=== PATIENT | male | born 1980 | race Caucasian/White ===

== ENCOUNTER 2019-02-24 00:50 | Emergency (ER) | payer SELFPAY ==
[2019-02-24] MEDS ORDERED: Lidocaine 2% Viscous Solution 15 ML Cup PO ONE (01:18)
[2019-02-24] MEDS ORDERED: Benzocaine 20% Topical Spray UD MUCMEM ONE (01:18)
[2019-02-24] MEDS ORDERED: Ibuprofen 600 MG Tab PO ONE (01:19)
--- NOTE | 2019-02-24 01:22 | EDM.PDOC ---
ED HPI GENERAL MEDICAL PROBLEM - General Chief Complaint: ENT Problem Stated Complaint: TOOTHACHE Time Seen by Provider: 02/24/19 01:14 CDT - History of Present Illness INITIAL COMMENTS - FREE TEXT/NARRATIVE: HISTORY AND PHYSICAL: History of present illness: Patient is a 38-year-old male who has a history of "bad teeth" and has not seen a dentist in many years and presents with pain to his right upper gumline and to the area. He says that he has pain on and off at several areas in his mouth but it was worse the last few days. He has been using [id number]-[id number] Anusol but no [id number] meds such as Tylenol or ibuprofen. He has no other systemic complaints Review of systems: As per history of present illness and below otherwise all systems reviewed and negative. Past medical history: As per history of present illness and as reviewed below otherwise noncontributory. Surgical history: As per history of present illness and as reviewed below otherwise noncontributory. Social history: No reported history of drug or alcohol abuse. Family history: As per history of present illness and as reviewed below otherwise noncontributory. Physical exam: General: Well-developed well-nourished thin man who is nontoxic and vital signs are noted by me. He has minimal soft tissue swelling seen of his maxillary area on the right and is speaking clearly HEENT: Atraumatic, normocephalic, pupils reactive, negative for conjunctival pallor or scleral icterus, mucous membranes moist, throat clear, neck supple, nontender, trachea midline. There is no cervical adenopathy or nuchal rigidity and there is no crepitus with palpation of the right side of his face. There are multiple areas of dental disease and dental decay the most noteworthy is along the right gumline extending from the bicuspid back to the premolars where there is multiple teeth with decay and gum swelling as well as tenderness in this area. Lungs: Clear to auscultation, breath sounds equal bilaterally, chest nontender. Heart: S1S2, regular rate and rhythm no overt murmurs Abdomen: Soft, nondistended, nontender. NABS Pelvis: Deferred Genitourinary: Deferred. Rectal: Deferred. Extremities: Atraumatic, negative for cords or calf pain. Neurovascular unremarkable. Neuro: Awake, alert, oriented. Cranial nerves II through XII unremarkable. Cerebellum unremarkable. Motor and sensory unremarkable throughout. Exam nonfocal. Diagnostics: [] Therapeutics: Dental balls, Motrin Impression: Dental infection and pain Definitive disposition and diagnosis as appropriate pending reevaluation and review of above. Right Cheek Pain Score (Numeric/FACES): 10 - Related Data Allergies Allergy/AdvReac Type Severity Reaction Status Date / Time No Known Allergies Allergy Verified 02/24/19 01:05 CDT Home Meds: Home Meds . [No Known Home Meds] 02/24/19 [History] Past Medical History - Past Health History Medical/Surgical History: Denies Medical/Surgical History HEENT History: Reports: None Cardiovascular History: Reports: None Respiratory History: Reports: None Gastrointestinal History: Reports: None Genitourinary History: Reports: None Musculoskeletal History: Reports: None Neurological History: Reports: None Psychiatric History: Reports: None Endocrine/Metabolic History: Reports: None Hematologic History: Reports: None Immunologic History: Reports: None Oncologic (Cancer) History: Reports: None Dermatologic History: Reports: None - Infectious Disease History Infectious Disease History: Reports: None - Past Surgical History Head Surgeries/Procedures: Reports: None Male Surgical History: Reports: None Social & Family History - Tobacco Use Smoking Status *Q: Current Every Day Smoker Years of Tobacco use: 20 Packs/Tins Daily: 1 - Caffeine Use Caffeine Use: Reports: Coffee, Soda - Recreational Drug Use Recreational Drug Use: No ED ROS GENERAL - Review of Systems Review Of Systems: ROS reveals no pertinent complaints other than HPI. ED EXAM, GENERAL - Physical Exam Exam: See Below (See dictation) Course - Vital Signs Last Recorded V/S: Last Vital Signs Temp 36.6 C 02/24/19 01:02 CDT Pulse 76 02/24/19 01:02 CDT Resp 20 02/24/19 01:02 CDT BP 142/77 H 02/24/19 01:02 CDT Pulse Ox 100 02/24/19 01:02 CDT - Orders/Labs/Meds Orders: Active Orders 24 hr Category Date Time Status Benzocaine [Hurricaine One 20%] Med 02/24/19 01:18 Once 2 each MUCMEM ONETIME ONE Ibuprofen [Motrin] Med 02/24/19 01:19 Once 600 mg PO ONETIME ONE Lidocaine 2% [Xylocaine 2% Viscous] Med 02/24/19 01:18 Once 15 ml PO ONETIME ONE Medication Orders Benzocaine (Hurricaine One 20%) 2 each MUCMEM ONETIME ONE Stop: 02/24/19 01:19 [employer]ESS [employer] Lidocaine HCl (Xylocaine 2% Viscous) 15 ml PO ONETIME ONE Stop: 02/24/19 01:19 [employer]ESS [employer] Meds: Medications Generic Name Dose Route Start Last Admin Trade Name Johnson PRN Reason Stop Dose Admin Benzocaine 2 each 02/24/19 01:18 [employer]ESS [employer] Hurricaine One 20% MUCMEM 02/24/19 01:19 DRESS [employer] ONETIME ONE Lidocaine HCl 15 ml 02/24/19 01:18 DRESS [employer]ER Xylocaine 2% Viscous PO 02/24/19 01:19 DRESS [employer]ER ONETIME ONE Departure - Departure Time of Disposition: 01:21 Disposition: Home, Self-Care 01 Condition: Good Clinical Impression: Dental infection, Pain, dental - Discharge Information Referrals: PCP,None [Primary Care Provider] - Additional Instructions: The following information is given to patients seen in the emergency department who are being discharged to home. This information is to outline your options for follow-up care. We provide all patients seen in our emergency department with a follow-up referral. The need for follow-up, as well as the timing and circumstances, are variable depending upon the specifics of your emergency department visit. If you don't have a primary care physician on staff, we will provide you with a referral. We always advise you to contact your personal physician following an emergency department visit to inform them of the circumstance of the visit and for follow-up with them and/or the need for any referrals to a consulting specialist. The emergency department will also refer you to a specialist when appropriate. This referral assures that you have the opportunity for followup care with a specialist. All of these measure are taken in an effort to provide you with optimal care, which includes your followup. Under all circumstances we always encourage you to contact your private physician who remains a resource for coordinating your care. When calling for followup care, please make the office aware that this follow-up is from your recent emergency room visit. If for any reason you are refused follow-up, please contact the [facility] emergency department at and ask to speak to the emergency department charge nurse. [facility] Primary care- Internal Medicine and Family [place] [id number] [place] [id number] Use [id number] Tylenol and/or ibuprofen for pain management and use the dental balls been given today in the ED as directed for pain management. Place ice on face for swelling and please connect with one of our local dentist using resources you have been given this evening for definitive care and treatment of this problem. [facility], amoxicillin, as directed until finished and return to ER as needed and as discussed - My Orders Last 24 Hours: My Active Orders 02/24/19 01:18 Benzocaine [Hurricaine One 20%] 2 each MUCMEM ONETIME ONE Lidocaine 2% [Xylocaine 2% Viscous] 15 ml PO ONETIME ONE 02/24/19 01:19 Ibuprofen [Motrin] 600 mg PO ONETIME ONE - Assessment/Plan Last 24 Hours: My Active Orders 02/24/19 01:18 Benzocaine [Hurricaine One 20%] 2 each MUCMEM ONETIME ONE Lidocaine 2% [Xylocaine 2% Viscous] 15 ml PO ONETIME ONE 02/24/19 01:19 Ibuprofen [Motrin] 600 mg PO ONETIME ONE
== END 2019-02-24 01:33 | disposition home or self-care (01) ==
LOC: MW.ED 00:50
DX: K04.7 Periapical abscess without sinus (principal); F17.210 Nicotine dependence, cigarettes, uncomplicated
CPT/HCPCS: 99282; A9270; 99283

== ENCOUNTER 2019-02-24 19:32 | Emergency (ER) | payer SELFPAY ==
--- NOTE | 2019-02-24 19:59 | EDM.PDOC ---
ED HPI GENERAL MEDICAL PROBLEM - General Chief Complaint: ENT Problem Stated Complaint: abcess tooth Time Seen by Provider: 02/24/19 19:47 Source of Information: Reports: Patient History Limitations: Reports: No Limitations - History of Present Illness INITIAL COMMENTS - FREE TEXT/NARRATIVE: HISTORY AND PHYSICAL: History of present illness: Patient is a 38-year-old male presents to the ED with complaint of dental pain. Patient was seen last night/early this morning and given antibiotic and dental balls. He has since developed an abscess and swelling to the right side of the face. He states he isn't sure if he should be continuing the antibiotic. He denies oropharyngeal swelling/itching, hoarseness, difficulty breathing, fevers , chills. Review of systems: As per history of present illness and below otherwise all systems reviewed and negative. Past medical history: As per history of present illness and as reviewed below otherwise noncontributory. Surgical history: As per history of present illness and as reviewed below otherwise noncontributory. Social history: No reported history of drug or alcohol abuse. Family history: As per history of present illness and as reviewed below otherwise noncontributory. Physical exam: General: Patient sitting comfortably in no acute distress and nontoxic appearing HEENT: Swelling to the right side of the face. Poor dentition and caries throughout. PAin to percussion of Tooth #21 with an adjacent abscess and gum swelling. Atraumatic, normocephalic, pupils reactive, negative for conjunctival pallor or scleral icterus, mucous membranes moist, throat clear, neck supple, nontender, trachea midline. No meningeal signs. Lungs: Clear to auscultation, breath sounds equal bilaterally, chest nontender. Heart: S1S2, regular, negative for clicks, rubs, or overt murmur. Abdomen: Soft, nondistended, nontender. Negative for masses or hepatosplenomegaly. Negative for costovertebral tenderness. No rigidity, rebound , guarding. Pelvis: Stable nontender. Genitourinary: Deferred. Rectal: Deferred. Extremities: Atraumatic, negative for cords or calf pain. Neurovascular unremarkable. Neuro: Awake, alert, oriented. Cranial nerves II through XII unremarkable. Cerebellum unremarkable. Motor and sensory unremarkable throughout. Exam nonfocal. Notes: Diagnostics: [] Therapeutics: Toradol 60mg IM Prescriptions: Impression: Dentalgia, dental infection Plan: Continue antibiotic as prescribed Alternate tylenol and ibuprofen and use dental balls as instructed Follow up with dentist Return to ED as needed as discussed Definitive disposition and diagnosis as appropriate pending reevaluation and review of above. dental Pain Score (Numeric/FACES): 10 - Related Data Allergies Allergy/AdvReac Type Severity Reaction Status Date / Time No Known Allergies Allergy Verified 02/24/19 19:58 Home Meds: Home Meds Amoxicillin 500 mg PO TID 02/24/19 [History] Past Medical History - Past Health History Medical/Surgical History: Denies Medical/Surgical History HEENT History: Reports: None Cardiovascular History: Reports: None Respiratory History: Reports: None Gastrointestinal History: Reports: None Genitourinary History: Reports: None Musculoskeletal History: Reports: None Neurological History: Reports: None Psychiatric History: Reports: None Endocrine/Metabolic History: Reports: None Hematologic History: Reports: None Immunologic History: Reports: None Oncologic (Cancer) History: Reports: None Dermatologic History: Reports: None - Infectious Disease History Infectious Disease History: Reports: None - Past Surgical History Head Surgeries/Procedures: Reports: None Male Surgical History: Reports: None Social & Family History - Caffeine Use Caffeine Use: Reports: Coffee, Soda ED ROS ENT - Review of Systems Review Of Systems: ROS reveals no pertinent complaints other than HPI. ED EXAM, ENT - Physical Exam Exam: See Below (see dictation) Course - Vital Signs Last Recorded V/S: Last Vital Signs Temp 98.6 F 02/24/19 19:51 Pulse 78 02/24/19 19:51 Resp 17 02/24/19 19:51 BP 133/80 02/24/19 19:51 Pulse Ox 97 02/24/19 19:51 - Orders/Labs/Meds Meds: Medications Discontinued Medications Generic Name Dose Route Start Last Admin Trade Name Freq PRN Reason Stop Dose Admin Ketorolac Tromethamine 60 mg 02/24/19 20:03 Toradol IM 02/24/19 20:04 ONETIME ONE Departure - Departure Time of Disposition: 20:15 Disposition: Home, Self-Care 01 Condition: Good Clinical Impression: Dentalgia, Dental infection - Discharge Information Referrals: PCP,None [Primary Care Provider] - Forms: ED Department Discharge Additional Instructions: The following information is given to patients seen in the emergency department who are being discharged to home. This information is to outline your options for follow-up care. We provide all patients seen in our emergency department with a follow-up referral. The need for follow-up, as well as the timing and circumstances, are variable depending upon the specifics of your emergency department visit. If you don't have a primary care physician on staff, we will provide you with a referral. We always advise you to contact your personal physician following an emergency department visit to inform them of the circumstance of the visit and for follow-up with them and/or the need for any referrals to a consulting specialist. The emergency department will also refer you to a specialist when appropriate. This referral assures that you have the opportunity for follow-up care with a specialist. All of these measure are taken in an effort to provide you with optimal care, which includes your follow-up. Under all circumstances we always encourage you to contact your private physician who remains a resource for coordinating your care. When calling for follow-up care, please make the office aware that this follow-up is from your recent emergency room visit. If for any reason you are refused follow-up, please contact the [facility] Emergency Department at and asked to speak to the emergency department charge nurse. [facility] [address] [place] [id number] [id number] Continue antibiotic as prescribed Alternate tylenol and ibuprofen and use dental balls as instructed Follow up with dentist Return to ED as needed as discussed
[2019-02-24] MEDS ORDERED: Ketorolac 60 MG/2 ML SDV IM ONE (20:03)
== END 2019-02-24 20:27 | disposition home or self-care (01) ==
LOC: MW.ED 19:32
DX: K04.7 Periapical abscess without sinus (principal); K02.9 Dental caries, unspecified
CPT/HCPCS: 96372; 99282; J1885